=== PATIENT | male | born 1990 | race Caucasian/White ===

== ENCOUNTER 2023-06-09 15:41 | Emergency (ER) | payer MEDICAID ==
[~2023-06-09] VITALS: Ht 172.7 cm; Wt 131.0 kg
[2023-06-09 16:10] VITALS: BP 126/87; PULSE 69; RESP 16; TEMP 98; O2SAT 100
[2023-06-09] MEDS ORDERED: SULF1TAB48 MT (18:10)
[2023-06-09] MEDS ORDERED: CLOT15CR27 TP (18:10)
[2023-06-09] MEDS ORDERED: NAPR-681 PO (18:10)
[2023-06-09] MEDS ORDERED: CEPH500C2 MT (18:10)
== END 2023-06-09 20:18 | disposition home or self-care (01) ==
LOC: ER 15:41
DX: L03.315 Cellulitis of perineum (principal)
CPT/HCPCS: 82962; 99283

== ENCOUNTER 2023-06-13 16:52 | Emergency (ER) | payer MEDICAID ==
[~2023-06-13] VITALS: Ht 175.3 cm; Wt 127.0 kg
[~2023-06-13 16:52] MED LIST: CEPH500C2 MT; CLOT15CR27 TP; NAPR-681 PO; SULF1TAB48 MT
[2023-06-13 17:17] VITALS: BP 144/92; O2SAT 100
[2023-06-13 18:36] VITALS: PULSE 87; RESP 16; TEMP 98.5
== END 2023-06-13 18:39 | disposition home or self-care (01) ==
LOC: ER 16:52
DX: L91.8 Other hypertrophic disorders of the skin (principal); L03.315 Cellulitis of perineum
CPT/HCPCS: 99281